=== PATIENT | female | born 1980 | race American Indian/Alaskan Native ===

== ENCOUNTER 2017-10-15 01:05 | Inpatient (IN) | payer MEDICARE ==
[2017-10-15] MEDS ORDERED: SUBLIMAZE IV PRN (02:14)
[2017-10-15] MEDS ORDERED: PITOCin/NS 30 UNIT/500ML 30 UNITS/500 ML BAG IV SCH (02:18)
[2017-10-15 02:38] LABS: Hematocrit 38.4 % (30.3-42.9); Hemoglobin 12.5 gm/dl (10.1-14.3); Mean Corpuscular HGB Conc 33 % (30-34); Mean Corpuscular Hemoglobin 27 pg (28-32); Mean Corpuscular Volume 84 fl (79-97); Platelet Count 249 K/mm3 (140-440); Red Blood Count 4.56 M/mm3 (3.65-5.03); Red Cell Distribution Width 15.4 % (13.2-15.2)
[2017-10-15] MEDS: LACTATED RINGERS 1,000 ML IV SCH ×2 (03:40→11:31)
[2017-10-15] MEDS: STADOL IV PRN ×2 (03:55→07:25)
[2017-10-15] MEDS ORDERED: ZOFRAN ONE ×2 (04:14→07:28)
[2017-10-15] MEDS ORDERED: ZOFRAN IV PRN ×2 (09:20→17:41)
[2017-10-15] MEDS ORDERED: PITOCin/NS 20 UNIT/1000ML DRIP 20,000 MILLIUNITS/1,000 ML BAG IV ONE (13:32)
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
[2017-10-15] MEDS ORDERED: MINERAL OIL ONE (14:33)
[2017-10-15] MEDS ORDERED: XYLOCAINE 2% INFILTRATI ONE (14:46)
--- NOTE | 2017-10-15 15:19 | Procedure Note ---
OB Delivery Note - Delivery Date of Delivery: 10/15/17 Surgeon: BIBI HEAD Estimated blood loss: 200cc - Vaginal Delivery presentation: vertex Delivery position: OA Intrapartum events: meconium Delivery augmentation: pitocin Delivery monitor: external FHT, external uterine Route of delivery: Delivery placenta: spontaneous Delivery cord: 3 umbilical vessels Episiotomy: none Delivery laceration: 1st degree Delivery repair: vicryl Delivery comments: Viable male delivered over intact perineum without assistance at 1440. Weight was 7 lbs. 5 oz. Apgars 8 and 9. Body cord reduced once delivered without difficulty. Infant had spontaneous cry mouth and nose were suctioned on the perineum. Skin to skin and delayed cord clamping was employed. The placenta was delivered spontaneously intact with three-vessel cord. A small first-degree perineal laceration was repaired with 2-0 Vicryl without difficulty. There was excellent hemostasis. Patient tolerated procedure well. - Infant A at 1 minute: 8 at 5 minutes: 9 Infant Gender: Male (7 pounds 5 ounces)
[2017-10-15] MEDS ORDERED: PHENERGAN PO PRN (17:41)
[2017-10-15] MEDS ORDERED: BENADRYL PO PRN (17:41)
[2017-10-15] MEDS ORDERED: TYLENOL PO PRN (17:41)
[2017-10-15] MEDS ORDERED: PHENERGAN PR PRN (17:41)
[2017-10-15] MEDS ORDERED: MILK OF MAGNESIA PO PRN (17:41)
[2017-10-15] MEDS ORDERED: LANSINOH TP PRN (17:41)
[2017-10-15] MEDS ORDERED: SODIUM CHLORIDE FLUSH SYRINGE 10 ML IV NR (17:41)
[2017-10-15] MEDS ORDERED: DERMOPLAST TP PRN (17:43)
[2017-10-15] MEDS: MOTRIN PO SCH ×2 (18:00→23:27)
[2017-10-15] MEDS: TUCKS PAD TP PRN (18:15)
[2017-10-15] MEDS: NORCO 5/325 PO PRN (21:28)
[2017-10-15] MEDS ORDERED: DULCOLAX PR PRN (22:00)
[2017-10-15] MEDS ORDERED: NORMODYNE PO SCH (23:00)
[2017-10-16] MEDS: MOTRIN PO SCH ×3 (05:44→17:35)
[2017-10-16 06:27] LABS: Hematocrit 32.4 % (30.3-42.9); Hemoglobin 10.6 gm/dl (10.1-14.3)
[2017-10-16] MEDS: NORMODYNE PO SCH (12:52)
--- NOTE | 2017-10-16 13:40 | Progress Note ---
Assessment and Plan - Patient Problems (1) Vaginal delivery Current Visit: Yes Status: Acute Plan to address problem: patient doing well routine care Subjective - Subjective Date of service: 10/16/17 Interval history: Patient without signicant complaints. Pain is controlled. Tolerating regular diet Patient reports: appetite normal, voiding normally, pain well controlled Sheldon: doing well Objective - Vital Signs Latest vital signs: Vital Signs Temp Pulse Resp BP BP Pulse Ox 10/16/17 12:52 97 H 133/77 10/16/17 12:00 98 F 97 H 20 133/77 10/16/17 08:20 98.3 F 90 20 126/75 10/16/17 04:00 98.3 F 96 H 22 113/67 100 10/16/17 00:54 97.6 F 108 H 18 127/78 99 10/15/17 22:41 116 H 140/85 10/15/17 19:27 97.4 F L 116 H 20 140/85 100 10/15/17 16:50 97.9 F 111 H 18 149/92 98 10/15/17 16:18 112 H 139/87 10/15/17 16:03 121 H 154/78 10/15/17 15:48 116 H 152/95 10/15/17 15:38 98.8 F 10/15/17 15:32 118 H 144/83 10/15/17 14:54 109 H 137/76 10/15/17 13:54 97.8 F 10/15/17 13:48 104 H 148/83 Intake and Output 10/15/17 10/16/17 10/16/17 22:59 06:59 14:59 Intake Total 1000 440 Output Total 200 700 200 Balance -200 300 240 Intake: Oral 1000 440 Output: Urine 200 700 200 Void 200 700 200 Other: Total, Intake Amount 1000 120 Total, Output Amount 200 300 200 Estimated Blood Loss 100 - Exam Abdomen: Present: normal appearance, soft Uterus: Present: normal, firm
--- NOTE | 2017-10-16 13:43 | Discharge Summary ---
Providers - Providers Date of Admission: 10/15/17 01:59 Date of discharge: 10/17/17 Attending physician: LAURA DENNISON MD Primary care physician: LAURA DENNISON MD Hospitalization Reason for admission: active labor, rupture of membranes Delivery: Discharge diagnosis: IUP at term delivered baby: male Hospital course: Patient presented with ruptured membranes. She subsequently had a . uncomplicated Condition at discharge: Good Disposition: DC-01 TO HOME OR SELFCARE - Discharge Diagnoses (1) Vaginal delivery Status: Acute Plan - Discharge Medications Prescriptions: HYDROcodone/APAP 5-325 [[place] 5/325] 1 each PO Q6HR PRN #30 tablet PRN Reason: Pain Ibuprofen [Motrin] 800 mg PO Q8HR PRN #60 tablet PRN Reason: Pain, Mild (1-3) - Provider Discharge Summary Activity: no sex for 6 weeks, no heavy lifting 4 weeks, no strenuous exercise Diet: routine Instructions: routine Additional instructions: [] Smoking cessation referral if applicable(refer to patient education folder for contact #) [] Refer to [facility] Booklet Call your doctor immediately for: * Fever > 100.5 * Heavy vaginal bleeding ( >1 pad per hour) * Severe persistent headache * Shortness of breath * Reddened, hot, painful area to leg or breast * schedule visit in 4-6 weeks - Follow up plan
[2017-10-16] MEDS: NORCO 5/325 PO PRN (20:18)
[2017-10-17] MEDS: MOTRIN PO SCH ×2 (00:08→07:33)
[2017-10-17] MEDS: NORCO 5/325 PO PRN ×2 (03:44→12:30)
[2017-10-17] MEDS: TUCKS PAD TP PRN (04:33)
[2017-10-17] MEDS: NORMODYNE PO SCH (09:45)
[2017-10-17 15:08] VITALS: BP 126/75
== END 2017-10-17 15:30 | disposition home or self-care (01) | DRG 774 ==
LOC: TRG 01:05 → LD 01:59 → APU 04:22 → LD 07:16 → OB 16:57
PROVIDERS: ADMIT Obstetrics & Gynecology; ATTEND Obstetrics & Gynecology
PROC: 10E0XZZ Delivery of Products of Conception, External Approach (ICD-10-PCS; principal; 2017-10-15)
PROC: 0HQ9XZZ Repair Perineum Skin, External Approach (ICD-10-PCS; 2017-10-15)
DX: O77.0 Labor and delivery complicated by meconium in amniotic fluid (principal); O10.92 Unspecified pre-existing hypertension complicating childbirth; Z3A.40 40 weeks gestation of pregnancy; Z37.0 Single live birth; O70.0 First degree perineal laceration during delivery
CPT/HCPCS: 36415; 85014; 85018; 85027; 86592; 86850; 86900; 86901; 99211; G0463; J0595; J2405; J2590; J3010; J7120

== ENCOUNTER 2019-07-08 07:15 | Inpatient (IN) | payer MEDICARE ==
[2019-07-08] MEDS ORDERED: MINERAL OIL 30 ML ORAL LIQD PO PRN ×2 (08:12→22:00)
[2019-07-08] MEDS ORDERED: ePHEDrine SULFATE 50 MG/1 ML INJ IV PRN ×2 (08:12→08:13)
[2019-07-08] MEDS ORDERED: fentaNYL 100 MCG/2 ML INJ IV PRN ×2 (08:12→08:13)
[2019-07-08] MEDS ORDERED: TERBUTALINE 1 MG/1 ML INJ IVP PRN ×2 (08:12→08:13)
[2019-07-08] MEDS ORDERED: LIDOCAINE (2%) 20 MG/1 ML VIAL 20 ML MDV INFILTRATI ONE ×2 (08:12→17:17)
[2019-07-08] MEDS ORDERED: ONDANSETRON 4 MG/2 ML INJ IV PRN ×3 (08:12→18:36)
[2019-07-08] MEDS ORDERED: TERBUTALINE 1 MG/1 ML INJ SUB-Q PRN ×2 (08:12→08:13)
[2019-07-08] MEDS ORDERED: PROMETHAZINE 25 MG TAB PO PRN ×2 (08:13→18:36)
[2019-07-08] MEDS ORDERED: LIDOCAINE (2%) 20 MG/1 ML VIAL 20 ML MDV INFILTRATI NR (08:13)
[2019-07-08] MEDS ORDERED: BUTORPHANOL 2 MG/1 ML INJ IV PRN (08:13)
[2019-07-08] MEDS ORDERED: NalbUPHINE 10 MG/1 ML INJ IV PRN (08:13)
[2019-07-08] MEDS ORDERED: AMPICILLIN/NS 2 GM/100 ML 2 GM/100 ML BAG IV ONE (08:13)
[2019-07-08] MEDS ORDERED: NALOXONE 0.4 MG/1 ML INJ IV PRN (08:13)
[2019-07-08] MEDS ORDERED: OXYTOCIN DRIP 30 UNITS/500 ML BAG IV SCH ×4 (09:00)
[2019-07-08] MEDS ORDERED: LACTATED RINGERS 1,000 ML IV SCH (09:00)
[2019-07-08] MEDS ORDERED: OXYTOCIN 20 UNIT/1000ML DRIP 20 UNITS/1,000 ML BAG IV SCH ×2 (09:00)
[2019-07-08 09:16] LABS: Hematocrit 35.5 % (30.3-42.9); Hemoglobin 11.6 gm/dl (10.1-14.3); Mean Corpuscular HGB Conc 33 % (30-34); Mean Corpuscular Volume 84 fl (79-97); Platelet Count 214 K/mm3 (140-440); Red Blood Count 4.22 M/mm3 (3.65-5.03); Red Cell Distribution Width 14.4 % (13.2-15.2)
[2019-07-08] MEDS: LACTATED RINGERS 1,000 ML IV SCH ×2 (09:30→17:29)
[2019-07-08] MEDS: BUTORPHANOL 2 MG/1 ML INJ IV PRN ×2 (11:28→14:48)
--- NOTE | 2019-07-08 11:55 | History and Physical Report ---
History of Present Illness Date of examination: 07/08/19 Date of admission: 07/08/19 07:16 Chief complaint: PROM History of present illness: This is a 39 yo EDC 07/08/19 at 40 weeks here for PROM clear this am. Patient is patient of [facility]. She has hx of trisomy 13 and 18. Hx of AMA. Patietn had hx of b/l breast mass. patient will f/u after delivery. Patient is chronic HTN. She has Gerd and GBS +. SHe is morbid obesity. Past History Past Medical History: GERD, other (morbid obesity ) Past Surgical History: no surgical history - Obstetrical History Expected Date of Delivery: 07/08/19 Actual Gestation: 40 Week(s) 0 Day(s) : 3 Para: 1 Hx # Term Pregnancies: 1 Number of Pregnancies: 0 Spontaneous Abortions: 1 Induced : 0 Number of Living Children: 1 Medications and Allergies Allergies Allergy/AdvReac Type Severity Reaction Status Date / Time No Known Allergies Allergy Verified 07/08/19 07:18 Home Medications Medication Instructions Recorded Confirmed Last Taken Type Cetirizine HCl [Zyrtec] 10 mg PO DAILY 10/15/17 07/08/1918 History 10 mg labetaloL [Normodyne TAB] 100 mg PO DAILY 10/15/17 07/08/19 1 Day Ago History ~10/14/17 100 mg Active Meds: Active Medications Butorphanol Tartrate (Stadol) 2 mg IV Q2H PRN PRN Reason: Pain , Severe (7-10) Last Admin: 07/08/19 11:28 Dose: 2 mg Documented by: Butorphanol Tartrate (Stadol) 1 mg IV Q2H PRN PRN Reason: Labor Pain Stop: 07/08/19 20:00 Ephedrine Sulfate (Ephedrine Sulfate) 10 mg IV Q2M PRN PRN Reason: Hypotension Fentanyl (Sublimaze) 100 mcg IV Q2H PRN PRN Reason: Labor Pain Stop: 07/08/19 22:00 Last Admin: 07/08/19 09:28 Dose: 100 mcg Documented by: Oxytocin/Sodium Chloride (Pitocin/Ns 20 Unit/1000ml Drip) 20 units in 1,000 mls @ 125 mls/hr IV DIRECT PIERRE Ampicillin Sodium (Ampicillin/Ns 1 Gm/50 Ml) 1 gm in 50 mls @ 100 mls/hr IV Q4H PIERRE; Protocol Oxytocin/Sodium Chloride (Pitocin/Ns 20 Unit/1000ml Drip) 20 units in 1,000 mls @ 125 mls/hr IV DIRECT PIERRE Oxytocin/Sodium Chloride (Pitocin/Ns 30 Unit/500ml) 30 units in 500 mls @ 1 mls/hr IV TITR PIERRE; Protocol Last Titration: 07/08/19 11:35 Dose: 4 milliunits/min, 4 mls/hr Documented by: Oxytocin/Sodium Chloride (Pitocin/Ns 30 Unit/500ml) 30 units in 500 mls @ 0 mls/hr IV TITR PIERRE; Protocol Lactated Ringer's (Lactated Ringers) 1,000 mls @ 125 mls/hr IV DIRECT PIERRE Last Admin: 07/08/19 09:30 Dose: 125 mls/hr Documented by: Lidocaine (Xylocaine 2%) 20 ml INFILTRATI ONCE NR Stop: 07/08/19 13:00 Mineral Oil (Mineral Oil) 30 ml PO QHS PRN PRN Reason: Constipation Nalbuphine HCl (Nalbuphine) 10 mg IV Q2H PRN PRN Reason: Pain, Moderate (4-6) Naloxone HCl (Naloxone) 0.1 mg IV Q2MIN PRN PRN Reason: Res Rate </= 8 or 02 SAT < 92% Ondansetron HCl (Zofran) 4 mg IV Q8H PRN PRN Reason: Nausea And Vomiting Promethazine HCl (Phenergan) 25 mg PO Q6H PRN PRN Reason: Nausea And Vomiting Terbutaline Sulfate (Brethine) 0.25 mg SUB-Q ONCE PRN PRN Reason: Hyperstimulation/Hypertonicity Terbutaline Sulfate (Brethine) 0.25 mg IVP ONCE PRN PRN Reason: Hyperstimulation/Hypertonicity Review of Systems All systems: negative - Vital Signs Vital signs: Vital Signs Pulse BP 100 H 121/66 07/08/19 08:30 07/08/19 08:30 Temp Pulse Resp BP Pulse Ox 97.7 F 95 H 20 125/67 97 07/08/19 09:32 07/08/19 11:49 07/08/19 09:32 07/08/19 11:37 07/08/19 11:49 - Physical Exam Breasts: Positive: normal Cardiovascular: Regular rate, Normal S1 Lungs: Positive: Clear to auscultation, Normal air movement Abdomen: Positive: normal appearance, soft, normal bowel sounds. Negative: distention, tenderness, guarding Genitourinary (Female): Positive: normal external genitalia, normal perenium Vagina: Positive: normal moisture Uterus: Positive: normal size, normal contour Anus/Rectum: Positive: normal perianal skin, heme negative Extremities: Positive: normal Deep Tendon Reflex Grade: Normal +2 - Obstetrical FHR: category 1 Cervical Dilatation: 4 Cervical Effacement Percentage: 60 station: -2 Uterine Contraction Pattern: Regular Uterine Tone Measurement Phase: Contraction Uterine Contraction Intensity: Mild Results Result Diagrams: 07/08/19 08:16 Abnormal lab results 07/08/19 Range/Units 08:16 MCH 27 L (28-32) pg All other labs normal. Assessment and Plan A/P PROM clear active labor GBS + -amp intiated augment with pitocin expect vaginal delivery
[2019-07-08] MEDS ORDERED: AMPICILLIN/NS 1 GM/50 ML 1 GM/50 ML BAG IV SCH (12:00)
--- NOTE | 2019-07-08 18:14 | Procedure Note ---
OB Delivery Note - Delivery Date of Delivery: 07/08/19 Surgeon: LAURA DENNISON Estimated blood loss: 200cc - Vaginal Delivery presentation: vertex Delivery position: OA Delivery augmentation: pitocin Delivery monitor: external FHT, external uterine Route of delivery: Delivery placenta: spontaneous Delivery cord: nuchal cord, 3 umbilical vessels Episiotomy: none Delivery laceration: none Anesthesia: none - A at 1 minute: 8 at 5 minutes: 9 Infant Gender: Male (3580g 7 pounds 14oz)
[2019-07-08] MEDS ORDERED: PROMETHAZINE 25 MG RECT SUPP PR PRN (18:36)
[2019-07-08] MEDS ORDERED: diphenhydrAMINE 25 MG CAP PO PRN (18:36)
[2019-07-08] MEDS ORDERED: LANOLIN/ZINC/DIMETHICONE (LANSINOH) 7 GM TP PRN (18:36)
[2019-07-08] MEDS ORDERED: WITCH HAZEL/ GLYCERIN PAD TP PRN (18:36)
[2019-07-08] MEDS ORDERED: MAGNESIUM HYDROXIDE (MOM) ORAL LIQD UDC PO PRN (18:36)
[2019-07-08] MEDS: IBUPROFEN 600 MG TAB PO SCH (20:12)
[2019-07-08] MEDS: ACETAMINOPHEN 325 MG TAB PO PRN (20:24)
[2019-07-09] MEDS: IBUPROFEN 600 MG TAB PO SCH ×3 (05:53→21:58)
[2019-07-09 06:56] LABS: Hemoglobin 10.8 gm/dl (10.1-14.3)
--- NOTE | 2019-07-09 08:18 | Progress Note ---
Assessment and Plan A/P PPD#1 routine PP care consider d/c home tomorrow Subjective - Subjective Date of service: 07/09/19 Principal diagnosis: s/p Interval history: This is a 39 yo EDC 07/08/19 at 40 weeks here for PROM clear this am. Patient is patient of [facility]. She has hx of trisomy 13 and 18. Hx of AMA. Patietn had hx of b/l breast mass. patient will f/u after delivery. Patient is chronic HTN. She has Gerd and GBS +. SHe is morbid obesity. Patient reports: appetite normal, voiding normally, pain well controlled, flatus, ambulating normally : doing well Objective - Vital Signs Latest vital signs: Vital Signs Temp Pulse Resp BP BP Pulse Ox 07/09/19 05:53 18 07/09/19 00:00 98.7 F 70 18 132/73 07/08/19 21:00 98.4 F 100 H 20 128/76 100 07/08/19 20:26 114 H 135/66 07/08/19 20:24 16 07/08/19 20:21 112 H 122/58 07/08/19 20:12 16 07/08/19 20:07 121 H 108/54 07/08/19 19:52 108 H 143/96 07/08/19 19:36 104 H 134/86 07/08/19 19:06 107 H 144/70 07/08/19 18:51 104 H 145/72 07/08/19 18:36 102 H 136/68 07/08/19 18:22 107 H 135/63 07/08/19 17:57 101 H 153/67 07/08/19 17:51 104 H 152/62 07/08/19 17:37 115 H 165/76 07/08/19 17:33 97.8 F 20 07/08/19 17:24 112 H 98 07/08/19 17:22 109 H 166/124 07/08/19 17:19 109 H 98 07/08/19 17:17 108 H 91 07/08/19 17:14 102 H 96 07/08/19 17:09 112 H 98 07/08/19 17:05 108 H 92 07/08/19 17:04 106 H 98 07/08/19 17:00 102 H 90 07/08/19 16:59 94 H 91 07/08/19 16:54 108 H 100 07/08/19 16:52 100 H 157/101 07/08/19 16:49 102 H 100 07/08/19 16:44 101 H 98 07/08/19 16:39 98 H 99 07/08/19 16:37 97 H 132/95 07/08/19 16:34 98 H 100 07/08/19 16:29 101 H 99 07/08/19 16:24 102 H 99 07/08/19 16:23 100 H 152/81 07/08/19 16:19 99 H 99 07/08/19 16:14 103 H 99 07/08/19 16:09 99 H 99 07/08/19 16:08 100 H 148/89 07/08/19 16:04 101 H 99 07/08/19 15:59 98 H 99 07/08/19 15:54 96 H 100 07/08/19 15:53 98 H 183/81 07/08/19 15:49 99 H 100 07/08/19 15:44 99 H 99 07/08/19 15:39 94 H 98 07/08/19 15:37 98 H 144/88 07/08/19 15:34 104 H 98 07/08/19 15:29 103 H 98 07/08/19 15:24 100 H 98 07/08/19 15:22 104 H 144/90 07/08/19 15:19 105 H 100 07/08/19 15:14 90 96 07/08/19 15:09 88 97 07/08/19 15:06 101 H 166/89 07/08/19 15:04 102 H 98 07/08/19 14:59 97 H 98 07/08/19 14:54 97 H 98 07/08/19 14:51 100 H 159/83 07/08/19 14:49 103 H 99 07/08/19 14:44 104 H 99 07/08/19 14:39 104 H 99 07/08/19 14:38 101 H 147/90 07/08/19 14:34 104 H 99 07/08/19 14:29 107 H 97 07/08/19 14:26 98 H 94 07/08/19 14:24 85 96 07/08/19 14:23 99 H 165/80 07/08/19 14:21 98.1 F 22 07/08/19 14:19 92 H 96 07/08/19 14:14 92 H 95 07/08/19 14:09 102 H 95 07/08/19 14:06 101 H 148/89 07/08/19 14:04 101 H 96 07/08/19 14:02 98 H 94 07/08/19 13:59 99 H 96 07/08/19 13:54 101 H 95 07/08/19 13:52 100 H 122/70 07/08/19 13:49 98 H 96 07/08/19 13:44 99 H 96 07/08/19 13:39 98 H 96 07/08/19 13:36 96 H 126/67 07/08/19 13:34 103 H 96 07/08/19 13:33 93 H 94 07/08/19 13:29 92 H 95 07/08/19 13:24 95 H 95 07/08/19 13:22 97 H 128/70 07/08/19 13:19 95 H 96 07/08/19 13:14 99 H 95 07/08/19 13:13 100 H 93 07/08/19 13:09 102 H 96 07/08/19 13:07 95 H 140/77 07/08/19 13:04 96 H 96 07/08/19 12:59 102 H 96 07/08/19 12:54 101 H 96 07/08/19 12:51 98 H 144/72 07/08/19 12:49 100 H 96 07/08/19 12:48 86 94 07/08/19 12:44 99 H 96 07/08/19 12:39 98 H 96 07/08/19 12:36 95 H 139/67 07/08/19 12:34 100 H 96 07/08/19 12:29 96 H 97 07/08/19 12:24 91 H 97 07/08/19 12:22 93 H 130/63 07/08/19 12:19 96 H 97 07/08/19 12:14 101 H 98 07/08/19 12:12 97.7 F 20 07/08/19 12:09 98 H 97 07/08/19 12:07 93 H 112/58 07/08/19 12:04 98 H 97 07/08/19 11:59 89 97 07/08/19 11:54 99 H 97 07/08/19 11:52 94 H 119/65 07/08/19 11:49 95 H 97 07/08/19 11:44 104 H 96 07/08/19 11:39 103 H 96 07/08/19 11:37 99 H 125/67 07/08/19 11:34 107 H 96 07/08/19 11:33 107 H 94 07/08/19 11:29 105 H 98 07/08/19 11:24 106 H 96 07/08/19 11:21 100 H 138/76 07/08/19 11:19 102 H 97 07/08/19 11:14 103 H 96 07/08/19 11:09 106 H 98 07/08/19 11:06 104 H 139/78 07/08/19 11:04 105 H 97 07/08/19 10:59 99 H 97 07/08/19 10:54 102 H 97 07/08/19 10:51 96 H 135/75 07/08/19 10:49 99 H 97 07/08/19 10:44 95 H 97 07/08/19 10:39 98 H 98 07/08/19 10:36 93 H 141/83 07/08/19 10:34 98 H 97 07/08/19 10:29 98 H 97 07/08/19 10:24 101 H 97 07/08/19 10:22 95 H 151/89 07/08/19 10:19 98 H 97 07/08/19 10:14 98 H 97 07/08/19 10:09 97 H 97 07/08/19 10:04 95 H 98 07/08/19 09:53 98 H 98 07/08/19 09:48 102 H 98 07/08/19 09:43 100 H 99 20 09:38 99 H 98 07/08/19 09:33 93 H 98 07/08/19 09:32 97.7 F 20 07/08/19 09:28 95 H 98 07/08/19 09:23 96 H 97 07/08/19 09:16 92 H 99 07/08/19 09:11 96 H 99 07/08/19 09:06 95 H 99 07/08/19 09:01 95 H 99 07/08/19 08:56 92 H 99 07/08/19 08:51 95 H 99 07/08/19 08:46 102 H 99 07/08/19 08:41 95 H 98 07/08/19 08:36 102 H 99 07/08/19 08:31 106 H 96 07/08/19 08:30 100 H 121/66 Intake and Output 07/08/19 07/09/19 07/09/19 23:59 07:59 15:59 Intake Total 906.25 600 Output Total 1400 Balance 906.25 -800 Intake: IV 906.25 Lactated Ringers 1,000 ml 906.25 @ 125 mls/hr IV DIRECT PIERRE Rx#:[id number] Intake, Free Water 600 Output: Urine 1400 Void 1400 Other: Total, Output Amount 800 # Voids Void 1 Estimated Blood Loss 200 - Exam Breasts: Present: normal Cardiovascular: Present: Regular rate, Normal S1 Lungs: Present: Clear to auscultation, Normal air movement Abdomen: Present: normal appearance, soft, normal bowel sounds. Absent: distention, tenderness, guarding Vulva: both: normal Uterus: Present: normal, firm, fundal height below umbilicus. Absent: bogginess, tenderness Extremities: Present: normal Deep Tendon Reflex Grade: Normal +2 - Labs Labs: Abnormal lab results 07/08/19 Range/Units 08:16 MCH 27 L (28-32) pg
[2019-07-09] MEDS: ACETAMINOPHEN 325 MG TAB PO PRN (16:22)
[2019-07-10] MEDS: IBUPROFEN 600 MG TAB PO SCH ×2 (04:25→09:13)
--- NOTE | 2019-07-10 09:27 | Progress Note ---
Assessment and Plan - Patient Problems (1) Vaginal delivery Current Visit: No Status: Acute Plan to address problem: Patient doing well Discharge home Subjective - Subjective Date of service: 07/10/19 Principal diagnosis: s/p Interval history: Patient without any significant complaints. She reports her lochia has improved. Her pain is well controlled. Patient reports: appetite normal, voiding normally, pain well controlled : doing well Objective - Vital Signs Latest vital signs: Vital Signs Temp Pulse Resp BP Pulse Ox 07/10/19 00:12 97.9 F 92 H 19 140/84 96 07/09/19 17:40 98.4 F 96 H 18 135/81 98 07/09/19 12:25 98.5 F 98 H 18 129/73 96 07/09/19 09:31 97.7 F 85 18 105/48 99 Intake and Output 07/09/19 07/10/19 07/10/19 22:59 06:59 14:59 Intake Total 300 200 Balance 300 200 Intake: Oral 200 Intake, Free Water 300 Other: Total, Intake Amount 200 # Voids Void 1 - Exam Abdomen: Present: normal appearance Uterus: Present: normal, firm
--- NOTE | 2019-07-10 09:28 | Discharge Summary ---
Providers - Providers Date of Admission: 07/08/19 07:16 Date of discharge: 07/10/19 Attending physician: LAURA DENNISON MD Primary care physician: LAURA DENNISON MD Hospitalization Reason for admission: rupture of membranes Delivery: Discharge diagnosis: IUP at term delivered Hospital course: Patient admitted for spontaneous rupture membranes. She subsequently had a normal spontaneous vaginal delivery. Her course was uneventful. Condition at discharge: Good Disposition: DC-01 TO HOME OR SELFCARE - Discharge Diagnoses (1) Vaginal delivery Status: Acute Plan - Discharge Medications Prescriptions: labetaloL [Labetalol 100mg TAB] 100 mg PO BID #60 tablet Ibuprofen [Motrin] 600 mg PO Q8H PRN #30 tablet PRN Reason: Pain Ibuprofen [Motrin] 800 mg PO Q8HR PRN #60 tablet PRN Reason: Pain, Mild (1-3) HYDROcodone/APAP 5-325 [[place] 5/325] 1 each PO Q6HR PRN #20 tablet PRN Reason: Pain - Provider Discharge Summary Activity: no sex for 6 weeks, no heavy lifting 4 weeks, no strenuous exercise Diet: routine Instructions: routine Additional instructions: [] Smoking cessation referral if applicable(refer to patient education folder for contact #) [] Refer to [facility] Booklet Call your doctor immediately for: * Fever > 100.5 * Heavy vaginal bleeding ( >1 pad per hour) * Severe persistent headache * Shortness of breath * Reddened, hot, painful area to leg or breast * Schedule follow-up in 4 weeks for visit - Follow up plan
[2019-07-10 16:24] VITALS: BP 107/52
== END 2019-07-10 15:00 | disposition home or self-care (01) | DRG 806 ==
LOC: LD 07:15 → TRG 07:15 → LD 07:16 → OB 21:02
PROVIDERS: ADMIT Obstetrics & Gynecology; ATTEND Obstetrics & Gynecology
PROC: 10E0XZZ Delivery of Products of Conception, External Approach (ICD-10-PCS; principal; 2019-07-08)
DX: O42.92 Full-term premature rupture of membranes, unspecified as to length of time between rupture and onset of labor (principal); O10.92 Unspecified pre-existing hypertension complicating childbirth; Z37.0 Single live birth; O99.62 Diseases of the digestive system complicating childbirth; O99.214 Obesity complicating childbirth; E66.01 Morbid (severe) obesity due to excess calories; Z3A.40 40 weeks gestation of pregnancy; K21.9 Gastro-esophageal reflux disease without esophagitis
CPT/HCPCS: 36415; 59025; 85014; 85018; 85027; 86850; 86900; 86901; 88307; G0378; J0290; J0595; J2590; J3010; J7120